=== PATIENT | female | born 1965 | race Caucasian/White ===

== ENCOUNTER 2018-10-26 09:20 | Emergency (ER) | payer OTHER, BC ==
[2018-10-26 09:31] VITALS: BP 137/80
--- NOTE | 2018-10-26 09:53 | UC ---
Upper Extremity HPI - HPI Summary HPI Summary: Started w/ R shoulder pain after painting 4 days ago. Pain worsened over time. Jean has helped somewhat. She is concerned there is something else wrong. Change in ROM reported. denies fever, redness, swelling. Of note she is R handed. - History of Current Complaint Chief Complaint: UCUpperExtremity Stated Complaint: SHOULDER PAIN Time Seen by Provider: 10/26/18 09:34 Hx Obtained From: Patient ?: No Pain Intensity: 9 Pain Scale Used: 0-10 Numeric Character: Sharp Aggravating Factor(s): Lifting, Flexion, Extension Alleviating Factor(s): Heat, Ice, OTC Meds Associated Signs And Symptoms: Negative: Swelling, Redness, Bruising - Allergies/Home Medications Allergies/Adverse Reactions: Allergies Allergy/AdvReac Type Severity Reaction Status Date / Time Penicillins Allergy Rash Verified 10/26/18 09:31 PMH/Surg Hx/FS Hx/Imm Hx Previously Healthy: Yes - Surgical History Surgical History: Yes Surgery Procedure, Year, and Place: tubal jaw surgery - Social History Alcohol Use: Occasionally Substance Use Type: None Smoking Status (MU): Never Smoked Tobacco Review of Systems All Other Systems Reviewed And Are Negative: Yes Constitutional: Positive: Negative Skin: Negative: Bruising Musculoskeletal: Positive: Arthralgia. Negative: Edema Neurological: Negative: Weakness, Paresthesia, Numbness Is Patient Immunocompromised?: No Physical Exam Triage Information Reviewed: Yes Appearance: Well-Appearing Vital Signs: Initial Vital Signs Temp 98.8 F 10/26/18 09:28 Pulse 86 10/26/18 09:28 Resp 16 10/26/18 09:28 BP 137/80 10/26/18 09:28 Pulse Ox 99 10/26/18 09:28 Vital Signs Reviewed: Yes Cardiovascular: Positive: Pulses Normal - R wrist Musculoskeletal Exam: Other - L shoulder unremarkable in comparison. R wrist and elbow unremarkable. Musculoskeletal: Positive: Strength Intact - R arm, No Edema - R shoulder, ROM Limited @ - R shoulder, Other: - neg. lift off test on R side. Skin: Positive: Other - No bruising noted on R shoulder. Upper Extremity Course/Dx - Course Course Of Treatment: 4 day hx of acute R shoulder pain after painting in a R handed healthy woman. There is pain and decr. ROM on R shoulder. Pulses normal on that side. Shoulder burisitis s/p overuse dx'd and will tx nsaids. Already took 600ibu this AM so unable to give Toradol. - Differential Dx/Diagnosis Differential Diagnosis/HQI/PQRI: Arthritis, Bursitis, Contusion Provider Diagnosis: Shoulder bursitis Discharge - Sign-Out/Discharge Documenting (check all that apply): Patient Departure All imaging exams completed and their final reports reviewed: No Studies - Discharge Plan Condition: Good Disposition: HOME Prescriptions: Ibuprofen [Ibu] 600 mg PO TID 10 Days #30 tablet Patient Education Materials: Shoulder Bursitis (ED) Referrals: Marco RODRIGUEZ,Jak Herr [Primary Care Provider] - Additional Instructions: If not improving after 7-14 days please follow up with your pcp - Billing Disposition and Condition Condition: GOOD Disposition: Home
== END 2018-10-26 10:15 | disposition home or self-care (01) ==
LOC: UCEAST 09:20
DX: M75.51 Bursitis of right shoulder (principal); Z88.0 Allergy status to penicillin; X58.XXXA Exposure to other specified factors, initial encounter; Y93.89 Activity, other specified; Y92.9 Unspecified place or not applicable
CPT/HCPCS: 99212; G0463